=== PATIENT | female | born 1995 | race African-American/Black ===

== ENCOUNTER 2017-05-18 10:35 | Emergency (ER) | payer MEDICAID ==
[~2017-05-18] VITALS: Ht 175.3 cm; Wt 78.0 kg
[~2017-05-18 10:35] MED LIST: FERR-63 PO; MULT-783 PO
[2017-05-18] MEDS ORDERED: ACETAMINOPHEN 500MG TABLET PO ONE (13:15)
[2017-05-18] MEDS ORDERED: ONDANSETRON 4MG ODT PO ONE (13:30)
[2017-05-18 14:23] LABS: CLARITY URINE CLOUDY (CLEAR); COLOR URINE YELLOW (YELLOW); GLUCOSE URINE NEGATIVE (NEGATIVE); KETONES URINE NEGATIVE (NEGATIVE); LEUKOCYTE ESTERASE URINE 2+ (NEGATIVE); NITRITE URINE NEGATIVE (NEGATIVE); OCCULT BLOOD URINE NEGATIVE (NEGATIVE); PH URINE 8.5 (4.5-8.0); PROTEIN URINE NEGATIVE (NEGATIVE); SPECIFIC GRAVITY URINE 1.009 (1.005-1.030); UROBILINOGEN URINE 0.2 E.U./dL (0.2-1.0)
[2017-05-18 15:09] LABS: BASOPHILS % 0.2 % (0.0-2.0); HEMATOCRIT. 33.7 % (36.0-48.0); HEMOGLOBIN. 11.2 g/dL (12.0-16.0); LYMPHOCYTES % 25.5 % (20.0-50.0); MEAN CORPUSCULAR HEMOGLOBIN 27.4 pg (28.0-32.0); MEAN CORPUSCULAR VOLUME 82.2 fL (81.0-99.0); MEAN PLATELET VOLUME 9.5 fl (7.4-10.4); MONOCYTES % 6.8 % (2.0-8.0); NEUTROPHILS % 66.5 % (40.0-76.0); PLATELET 197 x1000/uL (130-400); RED CELL DISTRIBUTION WIDTH 14.5 % (11.6-14.6)
[2017-05-18 15:28] VITALS: BP 129/63
== END 2017-05-18 15:29 | disposition home or self-care (01) ==
LOC: ER 10:52
DX: S39.012A Strain of muscle, fascia and tendon of lower back, initial encounter (principal); Z3A.14 14 weeks gestation of pregnancy; V49.9XXA Car occupant (driver) (passenger) injured in unspecified traffic accident, initial encounter; O9A.212 Injury, poisoning and certain other consequences of external causes complicating pregnancy, second trimester; V89.2XXA Person injured in unspecified motor-vehicle accident, traffic, initial encounter; Y92.410 Unspecified street and highway as the place of occurrence of the external cause; Y93.89 Activity, other specified
CPT/HCPCS: 36415; 76801; 81001; 81025; 84702; 85025; 99285; Q0162